=== PATIENT | female | born 1990 | race African-American/Black ===

== ENCOUNTER 2023-11-16 21:10 | Emergency (ER) | payer MEDICAID, OTHER ==
[~2023-11-16] VITALS: Ht 165.1 cm; Wt 76.0 kg
[2023-11-16 21:53] VITALS: O2SAT 100
[2023-11-16 21:56] VITALS: BP 118/76; PULSE 86; RESP 15; TEMP 36.83628; O2SAT 98
[2023-11-17 00:29] LABS: HEMATOCRIT. 33.6 % (36.0-48.0); HEMOGLOBIN. 11.4 g/dL (12.0-16.0); MEAN CORPUSCULAR HEMOGLOBIN 31.8 pg (28.0-32.0); MEAN CORPUSCULAR HGB CONC 33.8 g/dL (31.0-37.0); MEAN PLATELET VOLUME 10.2 fl (7.4-10.4); PLATELET 213 x1000/uL (130-400); RED BLOOD CELL COUNT 3.58 mill/uL (4.2-5.4); WHITE BLOOD COUNT 2.5 x1000/uL (4.5-11.0)
[2023-11-17 00:32] LABS: DIFFERENTIAL COMMENT 1
[2023-11-17 00:36] LABS: CHLORIDE 106 mEq/L (98-107); POTASSIUM 3.5 mEq/L (3.5-5.1); SODIUM 138 mEq/L (136-145)
[2023-11-17 00:37] LABS: CALCIUM 9.1 mg/dL (8.7-10.4); CARBON DIOXIDE 24 mEq/L (21-32)
[2023-11-17 00:42] LABS: CREATININE 0.8 mg/dL (0.6-1.0); GLUCOSE 123 mg/dL (70-105); UREA NITROGEN BLOOD 9 mg/dL (9-23)
[2023-11-17 13:27] LABS: PLATELET ESTIMATE NORMAL
== END 2023-11-17 03:48 | disposition left against medical advice (07) ==
LOC: ER 21:10
DX: R68.89 Other general symptoms and signs (principal); Z53.21 Procedure and treatment not carried out due to patient leaving prior to being seen by health care provider
CPT/HCPCS: 36415; 80048; 85025